=== PATIENT | male | born 1995 | race Hispanic/Latino ===

== ENCOUNTER 2024-05-16 20:16 | Emergency (ER) | payer BC ==
--- OUTSIDE RECORDS SUMMARY | 2024-05-16 20:18 | XMS REPORT | Continuity of Care Document ---
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 Problem Active 03-05 00:00: 00 [facility] Pain of knee region Pain of Knee Region Problem Active 03-04 00:00: 00 [facility] 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 Ordering Clinician Indication Dosage Frequency Signature (SIG) Comments Components Source meloxicam 15 mg tablet Take 1 tablet every day by oral route. meloxicam 15 mg tablet Take 1 tablet every day by oral route. No 1 Q1D meloxicam 15 mg tablet Take 1 tablet every day by oral route. [facility] meloxicam 15 mg tablet Take 1 tablet every day by oral route. meloxicam 15 mg tablet Take 1 tablet every day by oral route. No 1 Q1D meloxicam 15 mg tablet Take 1 tablet every day by oral route. [facility] Procedures Procedure Date / Time Performed Performing Clinicia n Source XR, knee, 4 or more view 2022-03-04 00:00:00 [facility] MRI, knee, w/o contrast 2022-03-04 00:00:00 [facility] Encounters Start Date/Time End Date/Time Encounter Type Admission Type Attending [facility] Facility Care Department Encounter ID Source 2022-04-27 00:00:00 2022-04-27 00:00:00 Outpatient [facility] [id number] [facility] 2022-03-05 00:00:00 2022-03-05 00:00:00 Outpatient [facility]atalessandro[facility] [id number] [facility] 2022-03-05 00:00:00 2022-03-05 00:00:00 Axel Smallwood MD: [id number] [id number] , Ph. [phone] [place] [facility] [place] [id number] [facility] 2022-03-04 00:00:00 2022-03-04 00:00:00 Outpatient [facility] [place] [id number] [facility] 2022-03-04 00:00:00 2022-03-04 00:00:00 Axel Smallwood MD: [id number] [phone] , Ph. [phone] [place] [facility] [place] [id number] [facility]
[2024-05-16 23:48] LABS: Absolute Lymphocytes (CBC) 1.2 K/uL (0.7-4.9); Absolute Monocytes 0.6 K/uL (0.1-1.3); Absolute Neutrophil 7.6 K/uL (1.8-8.0); Basophils % 0.3 % (0-1.3); Eosinophils % 0.1 % (0-4.4); Hematocrit 45.9 % (39.6-49.0); Hemoglobin 15.5 g/dL (13.6-17.9); Lymphocytes % 12.6 % (15.3-44.8); MCH 28.9 pg (27.0-35.0); MCHC 33.8 g/dL (32.0-36.0); MCV 85.6 fL (80-100); MPV 8.5 fL (7.6-11.3); Monocytes % 6.1 % (3.3-12.3); Neutrophils % 80.9 % (41.7-73.7); Nucleated Red Blood Cells % 0.1 % (0-0); Platelets 325 thou/uL (152-406); RBC Red Blood Cell Count 5.37 M/uL (4.33-5.43); Red Cell Distribution Width 13.4 % (12.1-15.2)
[2024-05-16 23:52] LABS: Albumin 4.6 g/dL (3.4-5.0); Albumin/Globulin Ratio 1.1 (1.1-1.8); Anion Gap 7.6 mEq/L (5.0-15.0); Bilirubin Total 0.7 mg/dL (0.2-1.0); Globulin 4.1 g/dL (2.3-3.5); Potassium 3.6 mEq/L (3.5-5.1); Protein, Total 8.7 g/dL (6.4-8.2)
--- NOTE | 2024-05-17 00:52 | RAD REPORT ---
CLINICAL HISTORY: Cough. COMPARISON: None. TECHNIQUE: XR CHEST 2 VIEWS 05/16/2024 10:07 PM JAIL MANAGER FINDINGS: Cardiac silhouette is normal in size. Lungs are clear without consolidation, atelectasis, mass or evi ma. There is no pleural effusion. There is no pneumothorax. There are no acute osseous findings. IMPRESSION: Clear lungs. Electronically signed by: Jalil Edge MD 05/16/2024 11:11 PM JAIL MANAGER RP Due to temporary technical issues with the PACS/ActionFlow reporting system, reports are being aide d by the in-house radiologist without review as a courtesy to ensure prompt reporting the interpreting radiologist is fully responsible for the content of the report. Transcribed Date/Time: 05/17/2024 12:52 AM
--- NOTE | 2024-05-17 01:15 | ER ---
Nurse's Notes [facility] Name: Boni Crespo Age: 28 yrs Sex: Male : 1995 Arrival Date: 05/16/2024 Time: 20:16 Bed 9 Private MD: Diagnosis: Cough;Acute upper respiratory infection, unspecified Presentation: 05/16 20:58 Chief complaint: Patient states: started coughing two months ago, has come and go. I tm6 have been put on a few medications, but it hasn't gotten any better. When I get to coughing I get SOB, nauseous, and vomiting. Today when I was coughing I passed out. Having night sweats. Coronavirus screen: Client denies travel out of the [place] in the last 14 days. Ebola Screen: Patient negative for fever greater than or equal to 101.5 degrees Fahrenheit, and additional compatible Ebola Virus Disease symptoms Patient denies exposure to infectious person. Patient denies travel to an Ebola-affected area in the 21 days before illness onset. No symptoms or risks identified at this time. Initial Sepsis Screen: Does the patient meet any 2 criteria? No. Patient's initial sepsis screen is negative. Does the patient have a suspected source of infection? No. Patient's initial sepsis screen is negative. Risk Assessment: Do you want to hurt yourself or someone else? Patient reports no desire to harm self or others. Onset of symptoms was May 16, 2024. 20:58 Method Of Arrival: Ambulatory tm6 20:58 Acuity: GREGORIO 3 tm6 Triage Assessment: 20:58 General: Appears in no apparent distress. Behavior is calm, cooperative. Pain: tm6 Complains of pain in head Pain currently is 7 out of 10 on a pain scale. Quality of pain is described as aching. EENT: Reports sore throat. Neuro: Level of Consciousness is awake, alert, obeys commands, Oriented to person, place, time, situation, Reports a syncopal episode earlier today when coughing. Cardiovascular: Patient's skin is warm and dry. Respiratory: Reports cough that is since x2 months Airway is patent Respiratory effort is even, unlabored, Respiratory pattern is regular, symmetrical. GI: Abdomen is flat, non-distended, Reports nausea. : No signs and/or symptoms were reported regarding the genitourinary system. Derm: No signs and/or symptoms reported regarding the dermatologic system. Musculoskeletal: No signs and/or symptoms reported regarding the musculoskeletal system. Historical: - Allergies: 20:58 No Known Allergies; tm6 - PMHx: 20:58 Kidney stones; Ulcers; tm6 - PSHx: 20:58 Appendectomy; tm6 - Immunization history:: Flu vaccine is not up to date. - Infectious Disease History:: Denies. - Social history:: Smoking status: Patient denies any tobacco usage or history of. Screenin:01 Tuberculosis screening: Possible symptoms: recent night sweats, cough for more than 2 tm6 weeks. 23:30 [facility] ED Fall Risk Assessment (Adult) History of falling in the last 3 months, me1 including since admission No falls in past 3 months (0 pts) Confusion or Disorientation No (0 pts) Intoxicated or Sedated No (0 pts) Impaired Gait No (0 pts) Mobility Assist Device Used No (0 pt) Altered Elimination No (0 pt) Score/Fall Risk Level 0 - 2 = Low Risk Maintained a safe environment, Provided non-skid footwear, Hourly rounding (assess needs \T\ fall precautionary measures) done. Abuse screen: Denies threats or abuse. Nutritional screening: No deficits noted. Assessment: 23:30 General: Appears ill, well developed, Behavior is calm, cooperative, appropriate for me1 age, Reports started coughing two months ago, has come and go. I have been put on a few medications, but it hasn't gotten any better. When I get to coughing I get SOB, nauseous, and vomiting. Today when I was coughing I passed out. Having night sweats. Pain: Denies pain. Neuro: Level of Consciousness is awake, alert, obeys commands, Oriented to person, place, time, situation, Appropriate for age. Cardiovascular: Patient's skin is warm and dry. Rhythm is regular. Respiratory: Reports shortness of breath with coughing cough that is persistent since a couple of months ago Airway is patent Respiratory effort is even, unlabored, Respiratory pattern is regular, symmetrical. GI: Reports nausea, vomiting, with coughing. : No signs and/or symptoms were reported regarding the genitourinary system. EENT: No signs and/or symptoms were reported regarding the EENT system. Derm: Skin is intact, is healthy with good turgor, Skin is pink, warm \T\ dry. Musculoskeletal: No signs and/or symptoms reported regarding the musculoskeletal system. Vital Signs: 20:57 BP 133 / 88; Pulse 87; Resp 18; Temp 98.4(O); Pulse Ox 99% on R/A; MAP 103 mmHg; Weight tm6 86.18 kg; Height 5 ft. 5 in. ; Pain 7/10; 20:57 Body Mass Index 31.62 (86.18 kg, 165.1 cm) tm6 20:57 Pain Scale: Adult tm6 ED Course: 20:19 Patient arrived in ED. jj6 20:59 Triage completed. tm6 21:01 Arm band placed on left wrist. tm6 22:03 Henry Keene FNP-C is PHCP. dr5 22:03 Roberth Huddleston MD is Attending Physician. dr5 22:41 Chest Pa And Lat (2 Views) XRAY In Process Unspecified. EDMS 23:28 CMP Sent. vk 23:28 CBC with Diff Sent. vk 23:28 Inserted saline lock: 20 gauge antecubital area, using aseptic technique. Blood vk collected. Flushed with 10 mL NS. 23:29 Alondra Mcnamara, RN is Primary Nurse. me1 23:30 Patient has correct armband on for positive identification. Bed in low position. Call me1 light in reach. Side rails up X2. Provided Education on: POC. Verbalized understanding.. Client placed on continuous cardiac and pulse oximetry monitoring. NIBP monitoring applied. Pulse ox on. NIBP on. 23:30 No provider procedures requiring assistance completed. me1 05/17 01:28 IV discontinued, intact, bleeding controlled, No redness/swelling at site. Pressure rv1 dressing applied. 01:48 IV discontinued, intact, bleeding controlled, No redness/swelling at site. Pressure vc1 dressing applied. Administered Medications: No medications were administered Medication: 05/16 23:30 VIS not applicable for this client. me1 Outcome: 05/17 01:15 Discharge ordered by . dr5 01:48 Discharged to home ambulatory, vc1 01:48 Condition: good 01:48 Discharge instructions given to patient, Instructed on discharge instructions, follow up and referral plans. medication usage, Demonstrated understanding of instructions, follow-up care, medications, Prescriptions given X 2, 01:48 Patient left the ED. vc1 Signatures: Dispatcher [employer] EDMS Lucy Hedrick jj6 Grace Pelletier RN RN vc1 Bridget Mclean rv1 Alondra Mcnamara RN RN me1 Abram Grajeda RN RN tm6 Roro Santiago, Henry, DIRECTOR SALES-C DIRECTOR SALES-Cdr5 Corrections: (The following items were deleted from the chart) 05/16 20:58 20:58 PSHx: None; tm6 tm6 21:02 20:58 Chief complaint: Patient states: started coughing two months ago, has come and tm6 go. I have been put on a few medications, but it hasn't gotten any better. When I get to coughing I get SOB, nauseous, and vomiting. Today when I was coughing I passed out tm6 23:29 20:58 Chief complaint: Patient states: started coughing two months ago, has come and me1 go. I have been put on a few medications, but it hasn't gotten any better. When I get to coughing I get SOB, nauseous, and vomiting. Today when I was coughing I passed out. Having night sweats tm6 23:30 20:58 Chief complaint: Patient states: started coughing two months ago, has come and me1 go. I have been put on a few medications, but it hasn't gotten any better. When I get to coughing I get SOB, nauseous, and vomiting. Today when I was coughing I passed out. Having night sweats me1
--- NOTE | 2024-05-17 01:15 | EDPHYS ---
Physician Documentation [facility] Name: Boni Crespo Age: 28 yrs Sex: Male : 1995 Arrival Date: 05/16/2024 Time: 20:16 Bed 9 Private MD: ED Physician Roberth Huddleston HPI: 05/16 22:03 This 28 yrs old Male presents to ER via Ambulatory with complaints of Cough, dr5 Syncope. 22:03 The patient or guardian reports cough, that is intermittent. Pt reports cough that's dr5 been going on for the past 2 months. Pt also reports hemoptysis, night sweats, and subjective intermittent fevers. . Historical: - Allergies: 20:58 No Known Allergies; tm6 - PMHx: 20:58 Kidney stones; Ulcers; tm6 - PSHx: 20:58 Appendectomy; tm6 - Immunization history:: Flu vaccine is not up to date. - Infectious Disease History:: Denies. - Social history:: Smoking status: Patient denies any tobacco usage or history of. ROS: 22:03 Constitutional: as per hpi dr5 Exam: 22:03 Constitutional: This is a well developed, well nourished patient who is awake, alert, dr5 and in no acute distress. Head/Face: Normocephalic, atraumatic. Neck: Trachea midline, no thyromegaly or masses palpated, and no cervical lymphadenopathy. Supple, full range of motion without nuchal rigidity, or vertebral point tenderness. No Meningismus. Chest/axilla: Normal chest wall appearance and motion. Nontender with no deformity. No lesions are appreciated. Cardiovascular: Regular rate and rhythm with a normal S1 and S2. Normal PMI, no JVD. No pulse deficits. Respiratory: Lungs have equal breath sounds bilaterally, clear to auscultation. No rales, rhonchi or wheezes noted. No increased work of breathing, no retractions or nasal flaring. Back: No spinal tenderness. No costovertebral tenderness. Full range of motion. Skin: Warm, dry with normal turgor. Normal color with no rashes, no lesions, and no evidence of cellulitis. Neuro: Awake and alert, GCS 15, oriented to person, place, time, and situation. Cranial nerves II-XII grossly intact. Motor strength 5/5 in all extremities. Sensory grossly intact. Cerebellar exam normal. Normal gait. Vital Signs: 20:57 BP 133 / 88; Pulse 87; Resp 18; Temp 98.4(O); Pulse Ox 99% on R/A; MAP 103 mmHg; Weight tm6 86.18 kg; Height 5 ft. 5 in. ; Pain 7/10; 20:57 Body Mass Index 31.62 (86.18 kg, 165.1 cm) tm6 20:57 Pain Scale: Adult tm6 MDM: 22:16 Medical Screening Exam initiated dr5 05/17 01:21 Differential Diagnosis: Obstructed Airway Bronchitis Influenza Upper Respiratory dr5 Infection. Data reviewed: vital signs, nurses notes. Care significantly affected by the following chronic conditions: Kidney Stones. Care significantly affected by the following Social Determinants of Health: Poor access to healthcare and/or lack of insurance, Poor access to transportation, Problems related to employment. Counseling: I had a detailed discussion with the patient and/or guardian regarding the historical points, exam findings, and any diagnostic results supporting the discharge/admit diagnosis, the presence of at least one elevated blood pressure reading (>120/80) during this emergency department visit, the need for outpatient follow up, for definitive care, a family practitioner, to return to the emergency department if symptoms worsen or persist or if there are any questions or concerns that arise at home. ED course: Chest x-ray was clear. Blood work was also unremarkable. Discussed likely viral infection causing cough. Recommended patient to follow-up with PCP as needed. Sent patient home with benzonatate for cough and albuterol to help if needed for wheezing.. 05/16 22:07 Order name: CBC with Diff; Complete Time: 00:32 dr5 05/16 22:07 Order name: CMP; Complete Time: 23:54 dr5 05/16 22:07 Order name: Chest Pa And Lat (2 Views) XRAY dr5 Administered Medications: No medications were administered Disposition Summary: 05/17/24 01:15 Discharge Ordered Notes: Location: Home dr5 Condition: Stable dr5 Diagnosis - Cough dr5 - Acute upper respiratory infection, unspecified dr5 Followup: dr5 - With: Emergency Department - When: As needed - Reason: Worsening of condition Followup: dr5 - With: Private Physician - When: 1 - 2 days - Reason: Recheck today's complaints, Continuance of care, Re-evaluation by your physician Discharge Instructions: - Discharge Summary Sheet dr5 - Cough, Adult dr5 Forms: - Work release form dr5 - Medication Reconciliation Form dr5 - Patient Portal Instructions dr5 - Leadership Thank You Letter dr5 Prescriptions: - albuterol sulfate 90 mcg/actuation Inhalation HFA Aerosol Inhaler - inhale 1 inhalation INHALATION route every 6 hours administer via ventilator; 1 dr5 application; Refills: 0, Product Selection Permitted - benzonatate 100 mg Oral capsule - take 1 capsule ORAL route 3 times per day; 30 capsule; Refills: 0, Product dr5 Selection Permitted Addendum: 05/19/2024 09:45 I was immediately available for consultation during this patient's visit. I did not e c2 personally see the patient or discuss the patient with the YOSHI. . Signatures: Dispatcher [employer] Roberth Thayer MD MD ec2 Abram Grajeda RN RN tm6 Henry Keene, FELICIA-C CLINICAL DERMATOLOGIST-Cdr5 Corrections: (The following items were deleted from the chart) 05/16 20:58 20:58 PSHx: None; tm6 tm6
[2024-05-17 07:50] VITALS: BP 133/88; TEMP 98.4; O2SAT 99
== END 2024-05-17 01:48 | disposition home or self-care (01) ==
LOC: ER 20:16
DX: J06.9 Acute upper respiratory infection, unspecified (principal)
CPT/HCPCS: 36415; 71046; 80053; 85025; 99284